=== PATIENT | female | born 1970 | race Two or more races ===

== ENCOUNTER 2019-09-12 14:08 | Outpatient (CLI) | payer BC ==
[2019-09-12] MEDS ORDERED: GADOTERATE 7.5 MMOL/15 ML VIAL ONE (15:55)
== END 2019-09-12 23:59 | disposition home or self-care (01) ==
LOC: CFH 14:08 → MERGE 14:08 → CFH 23:59
PROVIDERS: ATTEND Surgery
DX: C77.3 Secondary and unspecified malignant neoplasm of axilla and upper limb lymph nodes (principal); R59.0 Localized enlarged lymph nodes
CPT/HCPCS: 77049; A9575; C8908; C8937

== ENCOUNTER → 2019-09-21 | Outpatient (CLI) | payer BC ==
[~2019-09-21] MED LIST: OMNIPAQUE 350 MG/ML, 100ML BOTTLE ONE
== END | disposition home or self-care (01) ==
LOC: RAD 11:50
PROVIDERS: ATTEND Surgery
DX: C79.89 Secondary malignant neoplasm of other specified sites (principal); D25.9 Leiomyoma of uterus, unspecified; M51.36 Other intervertebral disc degeneration, lumbar region; J45.909 Unspecified asthma, uncomplicated; E03.9 Hypothyroidism, unspecified; R91.1 Solitary pulmonary nodule; R59.1 Generalized enlarged lymph nodes; N20.0 Calculus of kidney
CPT/HCPCS: 71260; 74177; Q9967

== ENCOUNTER → 2019-09-25 | Outpatient (CLI) | payer BC | END | disposition home or self-care (01) | LOC: RAD 08:43 | PROVIDERS: ATTEND Surgery | DX: C77.3 Secondary and unspecified malignant neoplasm of axilla and upper limb lymph nodes (principal) | CPT/HCPCS: 78306; A9503 ==

== ENCOUNTER 2019-10-05 08:29 | Day surgery (SDC) | payer BC ==
[~2019-10-05] VITALS: Ht 170.2 cm; Wt 77.5 kg
[~2019-10-05 08:29] MED LIST changes: +ASCO10004 PO; +BUPIVACAINE/PF 0.5% ONE; +FLAX10004 PO; +FLUT9.9S NS; +HEPARIN 1,000 UNITS/ML, 10ML ONE; +LEVO50TA5 PO; +LORA10TA75 PO; +MULT1TAB60 PO; -OMNIPAQUE 350 MG/ML, 100ML BOTTLE ONE; +VITA1TAB19 PO
[2019-10-05 08:54] VITALS: BP 130/84
[2019-10-05] MEDS ORDERED: LACTATED RINGERS 1,000 ML IV SCH (08:58)
[2019-10-05] MEDS ORDERED: FENTANYL PF 250 MCG/5ML ONE (09:46)
[2019-10-05] MEDS ORDERED: MIDAZOLAM 1 MG/ML, 2ML ONE (09:46)
[2019-10-05 09:51] LABS: HCG UR SG 1.019 (1.003-1.030)
[2019-10-05] MEDS ORDERED: CEFAZOLIN 1,000 MG ONE (11:07)
[2019-10-05] MEDS ORDERED: ROCURONIUM 10 MG/ML,10ML ONE (11:07)
[2019-10-05] MEDS ORDERED: PROPOFOL 10 MG/ML, 20ML ONE (11:07)
[2019-10-05] MEDS ORDERED: SUGAMMADEX 200 MG/2 ML IVPush ONE (11:07)
[2019-10-05] MEDS ORDERED: DEXAMETHASONE 4 MG/ML, 1ML ONE (11:07)
[2019-10-05] MEDS ORDERED: SUCCINYLCHOLINE 20 MG/ML, 10ML ONE (11:07)
[2019-10-05] MEDS ORDERED: ONDANSETRON 2MG/ML, 2ML ONE (11:07)
[2019-10-05] MEDS ORDERED: EPINEPHRINE 1 MG/ML, 1ML INFIL ONE (11:27)
[2019-10-05] MEDS ORDERED: OXYcodone 5 MG/5 ML ORAL.SOL UDC PO PRN (12:00)
[2019-10-05] MEDS ORDERED: DIAZEPAM 5 MG/ML, 2ML IV PRN ×2 (12:00)
[2019-10-05] MEDS ORDERED: KETOROLAC 30 MG/1 ML IV PRN (12:00)
[2019-10-05] MEDS ORDERED: METOCLOPRAMIDE 5 MG/ML, 2ML IV PRN (12:00)
[2019-10-05] MEDS ORDERED: LABETALOL 5MG/ML, 20ML IV PRN (12:00)
[2019-10-05] MEDS ORDERED: ALBUTEROL SULFATE 2.5 MG/3 ML NPPB PRN (12:00)
[2019-10-05] MEDS ORDERED: FENTANYL PF 100 MCG/2ML IV PRN (12:00)
[2019-10-05] MEDS ORDERED: MEPERIDINE/PF 25MG/0.5ML IVPush PRN (12:00)
[2019-10-05] MEDS ORDERED: HYDROmorphone 1 MG/ML, 1ML INJ IV PRN (12:00)
[2019-10-05] MEDS ORDERED: hydrALAzine 20 MG/ML, 1ML IV PRN (12:00)
[2019-10-05] MEDS ORDERED: PROMETHAZINE 25 MG/ML, 1ML IV PRN (12:00)
[2019-10-05] MEDS ORDERED: ONDANSETRON 2MG/ML, 2ML IVPush PRN (12:00)
== END 2019-10-05 13:15 | disposition home or self-care (01) ==
LOC: OUT 08:29
PROVIDERS: ATTEND Surgery
DX: C77.3 Secondary and unspecified malignant neoplasm of axilla and upper limb lymph nodes (principal); J45.909 Unspecified asthma, uncomplicated; E03.9 Hypothyroidism, unspecified; Z79.890 Hormone replacement therapy; Z79.899 Other long term (current) drug therapy; Z87.891 Personal history of nicotine dependence; Z98.890 Other specified postprocedural states
CPT/HCPCS: 36561; 71045; 76937; 77001; 81025; C1788; J0171; J0330; J0690; J1100; J1644; J2250; J2405; J2704; J3010; J7120

== ENCOUNTER 2020-01-17 09:30 | Outpatient (CLI) | payer BC ==
[~2020-01-17 09:30] MED LIST changes: -BUPIVACAINE/PF 0.5% ONE; -HEPARIN 1,000 UNITS/ML, 10ML ONE; +MULT-449 PO; -MULT1TAB60 PO
[2020-01-17] MEDS ORDERED: GADOTERATE 10 MMOL/20 ML VIAL ONE (10:15)
== END 2020-01-17 23:59 | disposition home or self-care (01) ==
LOC: CFH 09:30
PROVIDERS: ATTEND Internal Medicine Hematology & Oncology
DX: C50.811 Malignant neoplasm of overlapping sites of right female breast (principal)
CPT/HCPCS: 77049; A9575; C8908; C8937

== ENCOUNTER 2020-03-12 10:01 | Outpatient (CLI) | payer BC | END 2020-03-12 23:59 | disposition home or self-care (01) | LOC: STAR 10:01 | PROVIDERS: ATTEND Surgery | DX: Z02.9 Encounter for administrative examinations, unspecified (principal) ==

== ENCOUNTER 2020-03-21 09:05 | Day surgery (SDC) | payer BC ==
[~2020-03-21] VITALS: Ht 175.3 cm; Wt 83.0 kg
[2020-03-21] MEDS ORDERED: ONDANSETRON 2MG/ML, 2ML ONE (09:44)
[2020-03-21] MEDS ORDERED: SUCCINYLCHOLINE 20 MG/ML, 10ML ONE (09:44)
[2020-03-21] MEDS ORDERED: CEFAZOLIN 1,000 MG ONE ×2 (09:44)
[2020-03-21] MEDS ORDERED: FENTANYL PF 100 MCG/2ML ONE (09:44)
[2020-03-21] MEDS ORDERED: DEXAMETHASONE 4 MG/ML, 1ML ONE ×2 (09:44)
[2020-03-21] MEDS ORDERED: PROPOFOL 10 MG/ML, 20ML ONE (09:44)
[2020-03-21] MEDS ORDERED: MIDAZOLAM 1 MG/ML, 2ML ONE (09:44)
[2020-03-21] MEDS ORDERED: LACTATED RINGERS 1,000 ML IV SCH (09:55)
[2020-03-21 09:57] VITALS: BP 118/85
[2020-03-21] MEDS ORDERED: CHLORHEXIDINE 15 ML UDC MM ONE (10:00)
[2020-03-21 10:11] LABS: HCG UR SG 1.024 (1.003-1.030)
[2020-03-21] MEDS ORDERED: OXYcodone 5 MG/5 ML ORAL.SOL UDC PO PRN (12:00)
[2020-03-21] MEDS ORDERED: ACETAMINOPHEN 325 MG TABLET PO PRN (12:00)
[2020-03-21] MEDS ORDERED: FENTANYL PF 100 MCG/2ML IV PRN (12:00)
[2020-03-21] MEDS ORDERED: DIAZEPAM 5 MG/ML, 2ML IVPush PRN (12:00)
[2020-03-21] MEDS ORDERED: MEPERIDINE/PF 25MG/0.5ML IVPush PRN (12:00)
[2020-03-21] MEDS ORDERED: HYDROmorphone 1 MG/ML, 1ML INJ IVPush PRN (12:00)
[2020-03-21] MEDS ORDERED: ONDANSETRON 2MG/ML, 2ML IVPush PRN (12:00)
[2020-03-21] MEDS ORDERED: BUPIVACAINE/PF-EPI 0.5% 1:200K ONE (12:24)
== END 2020-03-21 15:50 | disposition home or self-care (01) ==
LOC: OUT 09:05
PROVIDERS: ATTEND Surgery
DX: C77.3 Secondary and unspecified malignant neoplasm of axilla and upper limb lymph nodes (principal); Z11.59 Encounter for screening for other viral diseases; J45.909 Unspecified asthma, uncomplicated; E03.9 Hypothyroidism, unspecified; Z79.899 Other long term (current) drug therapy; Z72.89 Other problems related to lifestyle; Z87.891 Personal history of nicotine dependence; Z85.3 Personal history of malignant neoplasm of breast
CPT/HCPCS: 36415; 36590; 38745; 81025; 87635; 88307; C1729; C1769; J0330; J0690; J1100; J2250; J2405; J2704; J3010; J7120; 88305

== ENCOUNTER → 2020-03-25 | Outpatient (CLI) | payer BC | END | disposition home or self-care (01) | LOC: ROC 07:06 | PROVIDERS: ATTEND Radiology Radiation Oncology | DX: C50.611 Malignant neoplasm of axillary tail of right female breast (principal); R59.0 Localized enlarged lymph nodes; D25.9 Leiomyoma of uterus, unspecified | CPT/HCPCS: 99214; G0463 ==

== ENCOUNTER → 2020-04-05 | Outpatient (CLI) | payer BC | END | disposition home or self-care (01) | LOC: CFH 10:56 | PROVIDERS: ATTEND Internal Medicine Hematology & Oncology | DX: C50.811 Malignant neoplasm of overlapping sites of right female breast (principal); R91.8 Other nonspecific abnormal finding of lung field | CPT/HCPCS: 71250 ==

== ENCOUNTER → 2020-07-16 | Outpatient (CLI) | payer BC ==
[~2020-07-16] MED LIST changes: +ASCO100018 PO; -ASCO10004 PO
== END | disposition home or self-care (01) ==
LOC: CFH 14:42
PROVIDERS: ATTEND Internal Medicine Hematology & Oncology
DX: Z12.31 Encounter for screening mammogram for malignant neoplasm of breast (principal); C50.811 Malignant neoplasm of overlapping sites of right female breast
CPT/HCPCS: 76641; 77063; 77067

== ENCOUNTER → 2020-09-26 | Outpatient (CLI) | payer BC | END | disposition home or self-care (01) | LOC: ROC 07:20 | PROVIDERS: ATTEND Radiology Radiation Oncology | DX: Z08 Encounter for follow-up examination after completed treatment for malignant neoplasm (principal); Z85.3 Personal history of malignant neoplasm of breast | CPT/HCPCS: 99213; G0463 ==

== ENCOUNTER → 2021-03-20 | Outpatient (CLI) | payer BC | END | disposition home or self-care (01) | LOC: ROC 07:06 | PROVIDERS: ATTEND Radiology Radiation Oncology | DX: Z08 Encounter for follow-up examination after completed treatment for malignant neoplasm (principal); Z85.3 Personal history of malignant neoplasm of breast | CPT/HCPCS: 99213; G0463 ==